=== PATIENT | male | born 1990 | race Asian ===

== ENCOUNTER 2024-04-13 08:58 | Inpatient (IN) | payer MEDICARE, MEDICAID ==
[2024-04-13] MEDS ORDERED: LORazepam 2 MG/ML INJ IM PRN (09:25)
[2024-04-13] MEDS ORDERED: IBUPROFEN 600 MG TAB PO PRN (09:25)
[2024-04-13] MEDS ORDERED: LORazepam 1 MG TAB PO PRN (09:25)
[2024-04-13] MEDS ORDERED: ACETAMINOPHEN TAB 325 MG TAB PO PRN (09:25)
[2024-04-13] MEDS ORDERED: MAGNESIUM HYDROXIDE 2,400 MG/30 ML CUP PO PRN (09:25)
[2024-04-13] MEDS ORDERED: haloperidoL 5 MG TAB PO PRN (09:25)
[2024-04-13] MEDS ORDERED: HALOPERIDOL LACTATE 5 MG/ML 1 ML VIAL IM PRN (09:25)
[2024-04-13] MEDS ORDERED: MAG HYDROX/AL HYDROX/SIMETH 355 ML BOTTLE PO PRN (09:25)
[2024-04-13] MEDS: PALIPERIDONE 3 MG TAB.ER.24 PO SCH (16:39)
[2024-04-14] MEDS ORDERED: traZODone HCL 50 MG TAB PO PRN (12:47)
--- NOTE | 2024-04-14 12:52 | P.HP ---
Psychiatric H&P - . H&P Date: 04/14/24 History & Physical: Allergies Allergy/AdvReac Type Severity Reaction Status Date / Time iodine Allergy Unknown Unknown Verified 04/13/24 16:35 Vital Signs Temp 97.6 F 04/14/24 09:17 Pulse 97 04/14/24 09:17 Resp 16 04/14/24 09:17 BP 108/72 04/14/24 09:17 Pulse Ox 97 04/14/24 09:17 FiO2 Intake & Output 04/13/24 04/14/24 04/14/24 18:59 06:59 18:59 Weight 90.265 kg Laboratory Last Values TSH 1.410 mIU/L (0.465-4.680) 04/14/24 09:24 04/14/24 12:06 IDENTIFYING DATA: Patient is a 33-year-old male, currently lives alone in a trailer, lives in [facility], he is single has no kids unemployed HPI: Patient presented to the hospital as a transfer from [facility]. As per EPS note "Per medical record from [facility]. Pt has been accepted for psychosis and manic behaviors per petition. Pt has been off psych meds for approx. 2 mos. parents went to pts apt and it was destroyed. Pt is paranoid and breaking things. Pt will be a direct admit to [facility] per central intake acceptance with Dr. Sy. Per intake and ER nurse, Abdiel, the pt has no medical issues, no behavioral issues, no restraints or PRN's needed, no physical restrictions and can return to his own apt upon discharge. Parents are involved in his care and he has a histroy of schizophrenia. Unsure of current psychiatric care. Covid negative 04/13. UDS negative. ETOH negative." Patient was seen today for psychiatric evaluation. As per petition completed by soil sort worker "patient presents to the ER with worsening paranoia and behavioral changes as reported by family. He was observed while in the ER to be responding to internal stimuli and has been recently been noncompliant with psychiatric treatment/medications." Patient was seen today sitting in his room agreeable to speak to designer writer today. He was fairly superficial vague and concrete. He had very poor understanding as to why he is in the hospital. He believes that his father "thought mentally I was not doing well". He states he has been taking the medications thus far however has not been taking anything at home. He believes that he is doing "fine" denied any issues at home and denied what was stated in the petition about breaking things. Denies any depression or anxiety at this time denies any problems with sleep or appetite. Appears to be disheveled in appearance. Patient denies any suicidal or homicidal ideations intent or plan. At this time patient denies any auditory or visual hallucinations. Patient denies any flight of ideas racing thoughts and increased in goal directed behavior. Patient admits to using no recreational drugs or cigarettes PAST PSYCHIATRIC HISTORY: Patient has a history of psychosis. Patient denies being on any psychiatric medications. Patient denies any previous psychiatric hospitalizations. Patient denies any psychiatric outpatient follow-up. Patient denies any history of suicide attempts in the past. PMH: as per ER note ALLERGIES: as per EMR CHEMICAL DEPENDENCY HISTORY: as per HPI FAMILY PSYCHIATRIC/SUBSTANCE USE HISTORY: Denies SOCIAL HISTORY: Patient was born and raised in [place] and raised in [place]. Claims that he completed high school, denies any legal history, claims he is single he has no kids he is unemployed. He lives alone in a trailer. MENTAL STATUS EXAM: General Appearance: Patient appears to be tall, long hair, wearing glasses, stated age is alert, fairly vague and guarded. Patient appears to have poor hygiene and grooming. Behavior: Patient is seated without any agitated behavior. Vague, guarded Speech: Patient's speech is fluent and nonpressured. And concrete Mood/Affect: Patient reports their mood is "okay", affect is congruent and constricted. Suicidality/Homicidality: Patient denies having any homicidal ideation intent or plan. Denies any suicidal ideations intent or plan Perceptions: Patient denies any visual hallucinations and denies any auditory hallucinations Though content/process: Minimizing, not endorsing any delusions or paranoia. Poor insight into his condition and need for hospitalization Memory and concentration: AOX3, grossly intact for the purposes of this session. Can spell "WORLD" backwards Judgment and insight: Poor STRENGTHS/WEAKNESSES: strength is that patient is resilient. Weakness is that patient has poor judgment and is impulsive INTELLECT: Average IMPRESSIONS: Psychosis unspecified, rule out schizophrenia versus drug-induced psychotic disorder PLAN: -Patient is admitted under involuntary status to [facility] for stabilization of psychiatric symptoms and safety. Patient has not signed adult voluntary form and has not signed medication consent and is placed in patient's chart. A second certification was completed and along with petition will be filed for court. -Medications : Invega p.o. 3 mg twice daily for psychosis/mood stabilization. Trazodone 50 mg nightly as needed for insomnia. -Ativan and Haldol PRN for agitation/aggression -Patient was informed of the risks, benefits and side effects of the medications . Patient did not signed med consent form and was placed in chart. Patient was offered medication information and declined it -Internal Medicine consult to perform medical evaluation and physical. -NRT -not needed as patient does not smoke -SW on board for discharge planning. Encourage patient to participate in groups to work on coping skills. Will await deferral and court date. 04/14/24 12:48
[2024-04-14 16:07] LABS: Chol/HDL Ratio 4.48 Ratio; LDL Cholesterol,Calculated 99.6 mg/dL (0.0-131.0); VLDL Calculation 16.86 mg/dL (5.00-40.00)
--- NOTE | 2024-04-15 04:24 | P.MDCNMH ---
History of Present Illness H&P Date: 04/14/24 Patient is a 33-year-old male with history of psychosis who presented for evaluation of mental health needs. Medicine was consulted for medical evaluation. Patient states he has no medical history or problems. He takes no medications at home other than olanzapine which he has been on for some time. He denies fever, chest pain, shortness of breath, abdominal pain, weakness, dizziness, dysuria. Patient is afebrile, blood pressure 108/72, pulse 97, O2 saturation 97% on room air. HDL 33 is decreased, HbA1c and TSH are WNL. No imaging to review. Social history: Patient denies history of alcohol, tobacco, drug use Review of systems: Reviewed, pertinent positive negatives as per HPI Gen: In NAD, non-toxic HEENT: normocephalic, atraumatic, hearing acuity is intact, mucous membranes moist CVS: perfusing all extremities well, no pitting edema Respiratory: symmetric chest expansion, no accessory muscle use GI: soft, NTTP, ND, : no suprapubic tenderness, no CVA tenderness MSK/Derm: no rashes, cyanosis Neuro: CN II-XII intact, no motor weakness Assessment/plan: #Dyslipidemia -HDL decreased - no statin needed at this time - no further labs or imaging needed at this time #Psychosis -Management per primary psychiatry service Thank you for this consult, please reach out if any further questions/concerns. Past Medical History Past Medical History: No Reported History Additional Past Medical History / Comment(s): Poor historian History of Any Multi-Drug Resistant Organisms: None Reported Additional Past Surgical History / Comment(s): Poor historian Past Anesthesia/Blood Transfusion Reactions: No Reported Reaction Smoking Status: Never smoker Past Alcohol Use History: None Reported Past Drug Use History: None Reported Additional Drug Use History / Comment(s): Per EMR history of cocaine and LSD 5 months ago Medications and Allergies Home Medications Medication Instructions Recorded Confirmed Type OLANZapine [Zyprexa] 20 mg PO HS 04/13/24 04/13/24 History Allergies Allergy/AdvReac Type Severity Reaction Status Date / Time iodine Allergy Unknown Unknown Verified 04/13/24 16:35 Physical Exam Vitals: Vital Signs Temp Pulse Pulse Resp BP BP BP 04/14/24 09:17 97.6 F 97 16 108/72 04/13/24 20:45 97.7 F 102 H 12 103/82 103/82 Pulse Ox 04/14/24 09:17 97 04/13/24 20:45 99 Cranial Nerve Examination - Cranial Nerves Cranial Nerve II- Optic: Intact Cranial Nerve III- Oculomotor: Intact Cranial Nerve IV- Trochlear: Intact Cranial Nerve V- Trigeminal: Intact Cranial Nerve - Abducens: Intact Cranial Nerve VII- Facial: Intact Cranial Nerve VIII- Auditory: Intact Cranial Nerve IX- Glossopharyngeal: Intact Cranial Nerve X- Vagus: Intact Cranial Nerve XI- Accessory: Intact Cranial Nerve XII- Hypoglossal: Intact Results Labs: Abnormal Lab Results - Last 24 Hours (Table) 04/14/24 Range/Units 09:24 HDL Cholesterol 33.50 L (40.00-60.00) mg/dL
--- NOTE | 2024-04-15 10:00 | P.PN ---
Progress Note - Text Progress Note Date: 04/15/24 Interval History: Patient was seen today in his room for psychiatric follow-up. Patient was sit ting on his bed, keeping to himself mainly in his room. He continues to have fairly poor insight poor judgment. Appears to be mildly more cooperative today with card writer hand, continues to be fairly concrete, limited understanding as to why he is in the hospital. Has been taking his medications not reporting any problems or side effects. States that he did talk to his father however was fairly evasive about what they talked about. Has not been going to groups. Claims that he took a shower earlier today. Denies any depression or anxiety. Denies any auditory or visual hallucinations. Denies any suicidal homicidal ideations intent or plan. Mental status exam: General Appearance: Patient appears to be tall, long hair, wearing glasses, stated age is alert, fairly vague and guarded. Patient appears to have improving hygiene and grooming. Behavior: Patient is seated without any agitated behavior. guarded Speech: Patient's speech is fluent and nonpressured. And concrete Mood/Affect: Patient reports their mood is "ok", affect is congruent and constricted. Improving mildly Suicidality/Homicidality: Patient denies having any homicidal ideation intent or plan. Denies any suicidal ideations intent or plan Perceptions: Patient denies any visual hallucinations and denies any auditory hallucinations Though content/process: Minimizing, not endorsing any delusions or paranoia. Poor insight into his condition. Poverty of content Memory and concentration: AOX3, grossly intact for the purposes of this session Judgment and insight: Poor IMPRESSIONS: Psychosis unspecified, rule out schizophrenia versus drug-induced psychotic disorder PLAN: -Patient is admitted under involuntary status to [facility] for stabilization of psychiatric symptoms and safety. Patient has not signed adult voluntary form and has not signed medication consent and is placed in patient's chart. -Medications : Invega p.o. 3 mg twice daily for psychosis/mood stabilization. Plan will be to transition patient onto long-acting injection to help ensure compliance. Trazodone 50 mg nightly as needed for insomnia. -Ativan and Haldol PRN for agitation/aggression -NRT -not needed as patient does not smoke -SW on board for discharge planning. Encourage patient to participate in groups to work on coping skills. Will await deferral and court date.
[2024-04-16 06:59] VITALS: TEMP 98.2
--- NOTE | 2024-04-16 10:25 | P.PN ---
Progress Note - Text Progress Note Date: 04/16/24 Interval History: Patient was seen today in his room for psychiatric follow-up. Patient claims that he just finished showering. He appears to be fairly directable during conversation, more appropriate. Has been taking his medications not reporting any side effects or problems. We spoke about transitioning to long-acting injection to help with compliance however patient adamantly declined at this time. Claims that he preferred to take the pills. Insight and judgment mildly improving. Denies any depression or anxiety. Patient was sitting on his bed, keeping to himself mainly in his room. Has been taking his medications not reporting any problems or side effects. Has not been going to groups. Denies any auditory or visual hallucinations. Denies any suicidal homicidal ideations intent or plan. Mental status exam: General Appearance: Patient appears to be tall, long hair, wearing glasses, stated age is alert, fairly vague and guarded. Patient appears to have improving hygiene and grooming. Behavior: Patient is seated without any agitated behavior. guarded, improving mildly Speech: Patient's speech is fluent and nonpressured. And concrete, improving mildly Mood/Affect: Patient reports their mood is "ok", affect is congruent and constricted. Improving mildly Suicidality/Homicidality: Patient denies having any homicidal ideation intent or plan. Denies any suicidal ideations intent or plan Perceptions: Patient denies any visual hallucinations and denies any auditory hallucinations Though content/process: Minimizing, not endorsing any delusions or paranoia. Poor insight into his condition. Poverty of content, improving mildly Memory and concentration: AOX3, grossly intact for the purposes of this session Judgment and insight: Poor, improving mildly IMPRESSIONS: Psychosis unspecified, rule out schizophrenia versus drug-induced psychotic disorder PLAN: -Patient is admitted under involuntary status to [facility] for stabilization of psychiatric symptoms and safety. Patient has not signed adult voluntary form and has not signed medication consent and is placed in patient's chart. -Medications : Invega p.o. 3 mg twice daily for psychosis/mood stabilization. Director Volunteer Services spoke with patient about the benefits and risks associated with transitioning to long-acting injection however patient adamantly declined at this time. Trazodone 50 mg nightly as needed for insomnia. -Ativan and Haldol PRN for agitation/aggression -NRT -not needed as patient does not smoke -SW on board for discharge planning. Encourage patient to participate in groups to work on coping skills. Will await deferral and court date. Hopeful for discharge in 1 to 2 days will be going back home.
[2024-04-17 08:36] VITALS: BP 107/72; PULSE 109; RESP 18
--- NOTE | 2024-04-17 11:19 | P.PN ---
Progress Note - Text Progress Note Date: 04/17/24 Interval History: Patient was seen today in his room for psychiatric follow-up. Patient appears to have improvement in his hygiene and grooming today. He was fairly directable during conversation, answered most questions appropriately. Denies any depression or anxiety today. Not reporting any psychotic symptoms denying any auditory or visual hallucinations. Claims that he will likely be talking to his father today, was asking questions about discharge date. Still has not met with his steel wheel engraver will be meeting with them tomorrow virtually. Continues to decline long-acting injection. Claims that he preferred to take the pills. Insight and judgment mildly improving. He has been going to some groups however not staying for very long mainly keeping himself on the unit. Denies any auditory or visual hallucinations. Denies any suicidal homicidal ideations intent or plan. Mental status exam: General Appearance: Patient appears to be tall, long hair, wearing glasses, stated age is alert, fairly vague and guarded. Patient appears to have improving hygiene and grooming. Behavior: Patient is seated without any agitated behavior. guarded, improving mildly Speech: Patient's speech is fluent and nonpressured. concrete, improving mildly Mood/Affect: Patient reports their mood is "fine", affect is congruent and constricted. Improving mildly Suicidality/Homicidality: Patient denies having any homicidal ideation intent or plan. Denies any suicidal ideations intent or plan Perceptions: Patient denies any visual hallucinations and denies any auditory hallucinations Though content/process: Minimizing, not endorsing any delusions or paranoia. Poor insight into his condition. Poverty of content, improving mildly Memory and concentration: AOX3, grossly intact for the purposes of this session Judgment and insight: improving mildly IMPRESSIONS: Psychosis unspecified, rule out schizophrenia versus drug-induced psychotic disorder PLAN: -Patient is admitted under involuntary status to [facility] for stabilization of psychiatric symptoms and safety. Patient has not signed adult voluntary form and has not signed medication consent and is placed in patient's chart. -Medications : Invega p.o. 3 mg twice daily for psychosis/mood stabilization. Computer Art Instructor spoke with patient about the benefits and risks associated with transitioning to long-acting injection however patient adamantly declined at this time. Trazodone 50 mg nightly as needed for insomnia. -Ativan and Haldol PRN for agitation/aggression -NRT -not needed as patient does not smoke -SW on board for discharge planning. Encourage patient to participate in groups to work on coping skills. Will await deferral scheduled for tomorrow, patient states that he is willing to sign deferral. Hopeful for discharge in tomorrow, will be going back home.
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
== END 2024-04-18 14:05 | disposition home or self-care (01) | DRG 885 ==
LOC: 3MHU 12:05
PROVIDERS: ADMIT Psychiatry & Neurology Psychiatry; ATTEND Psychiatry & Neurology Psychiatry
DX: F29 Unspecified psychosis not due to a substance or known physiological condition (principal); E78.5 Hyperlipidemia, unspecified; F19.11 Other psychoactive substance abuse, in remission; F20.9 Schizophrenia, unspecified; F41.9 Anxiety disorder, unspecified; Z91.199 Patient's noncompliance with other medical treatment and regimen due to unspecified reason; Z60.2 Problems related to living alone; Z56.0 Unemployment, unspecified; Z71.51 Drug abuse counseling and surveillance of drug abuser; Z28.21 Immunization not carried out because of patient refusal; Z28.310 Unvaccinated for COVID-19; Z79.899 Other long term (current) drug therapy; Z88.8 Allergy status to other drugs, medicaments and biological substances; Z71.89 Other specified counseling
CPT/HCPCS: 80061; 83036; 84443

== ENCOUNTER 2024-05-29 21:03 | Inpatient (IN) | payer MEDICARE, MEDICAID ==
[2024-05-29] MEDS ORDERED: haloperidoL 5 MG TAB PO PRN (22:03)
[2024-05-29] MEDS ORDERED: MAG HYDROX/AL HYDROX/SIMETH 355 ML BOTTLE PO PRN (22:03)
[2024-05-29] MEDS ORDERED: MAGNESIUM HYDROXIDE 2,400 MG/30 ML CUP PO PRN (22:03)
[2024-05-29] MEDS ORDERED: IBUPROFEN 600 MG TAB PO PRN (22:03)
[2024-05-29] MEDS ORDERED: HALOPERIDOL LACTATE 5 MG/ML 1 ML VIAL IM PRN (22:03)
[2024-05-29] MEDS ORDERED: LORazepam 2 MG/ML INJ IM PRN (22:03)
[2024-05-29] MEDS ORDERED: ACETAMINOPHEN TAB 325 MG TAB PO PRN (22:03)
[2024-05-30] MEDS: NICOTINE 14MG/24HR PATCH TRANSDERM SCH (08:59)
[2024-05-30 09:37] LABS: ALT 17 U/L (4-49); AST 20 U/L (17-59); Albumin 4.6 g/dL (3.5-5.0); Alkaline Phosphatase 72 U/L (38-126); Bilirubin, Delta 0.2 mg/dL (0.0-0.2); Bilirubin,Unconjugated 0.4 mg/dL (0.0-1.1); Total Bilirubin 0.6 mg/dL (0.2-1.3); Total Protein 7.3 g/dL (6.3-8.2)
--- NOTE | 2024-05-30 12:05 | P.HP ---
Psychiatric H&P - . H&P Date: 05/30/24 History & Physical: Allergies Allergy/AdvReac Type Severity Reaction Status Date / Time iodine Allergy Unknown Unknown Verified 04/13/24 16:35 Vital Signs Temp 98.0 F 05/29/24 22:15 Pulse 85 05/29/24 22:15 Resp 16 05/29/24 22:15 BP 115/74 05/30/24 09:00 Pulse Ox 100 05/29/24 22:15 FiO2 Intake & Output 05/29/24 05/30/24 05/30/24 18:59 06:59 18:59 Weight 90.537 kg Laboratory Last Values Total Bilirubin 0.6 mg/dL (0.2-1.3) 05/30/24 07:33 Conjugated Bilirubin 0.0 mg/dL (0.0-0.3) 05/30/24 07:33 Unconjugated Bilirubin 0.4 mg/dL (0.0-1.1) 05/30/24 07:33 Delta Bilirubin 0.2 mg/dL (0.0-0.2) 05/30/24 07:33 AST 20 U/L (17-59) 05/30/24 07:33 ALT 17 U/L (4-49) 05/30/24 07:33 Alkaline Phosphatase 72 U/L (38-126) 05/30/24 07:33 Total Protein 7.3 g/dL (6.3-8.2) 05/30/24 07:33 Albumin 4.6 g/dL (3.5-5.0) 05/30/24 07:33 TSH 2.110 mIU/L (0.465-4.680) 05/30/24 07:33 05/30/24 11:56 IDENTIFYING DATA: Patient is a 33-year-old male, currently lives alone in a trailer, lives in [facility], he is single has no kids unemployed HPI: Patient presented to the hospital as a transfer from [facility]. As per EPS note "Patient presented to [facility] related to altered mental status and noncompliance with medications. Patient petitioned by parents stating that he is stealing from his social security and believes he is cured of schizophrenia. Patient has been noncompliant with his medications x3 days. Verbalizes auditory hallucinations daily but denies any commands." Patient was seen today for psychiatric evaluation. Patient was wandering the hallways. Patient claims that his parents were "a little scared" of him as he stopped taking his medications. He claims that they believe that he needs to come back to the hospital. He signed the deferral from his previous admission to the mental health unit in March. He is denying any current psychiatric issues at this time or no stressors at home. Claims that he thought that he was "fine". Claims that he was taking his Invega but then decided to stop for "a couple of days". He has fairly poor insight poor judgment. He was not responding to internal stimuli at this time. Patient denies any suicidal or homicidal ideations intent or plan. At this time patient denies any auditory or visual wen llucinations. Patient denies any flight of ideas racing thoughts and increased in goal directed behavior. Patient admits to using no recreational drugs or cigarettes he claims that his sleep and appetite are fair at this time. PAST PSYCHIATRIC HISTORY: Patient has a history of psychosis, schizophrenia. Patient was previously on Invega 3 mg p.o. twice daily for psychosis. Patient was last psychiatrically hospitalized on mental health unit in March 2024. Patient is currently on an active deferral. Patient claims that he follows up at [facility] counseling with the nurse practitioner. Patient denies any history of suicide attempts in the past. PMH: as per ER note ALLERGIES: as per EMR CHEMICAL DEPENDENCY HISTORY: as per HPI FAMILY PSYCHIATRIC/SUBSTANCE USE HISTORY: Denies SOCIAL HISTORY: Patient was born and raised in [place] and raised in [place]. Claims that he completed high school, denies any legal history, claims he is single he has no kids he is unemployed. He lives alone in a trailer. MENTAL STATUS EXAM: General Appearance: Patient appears to be tall, long hair, wearing glasses, stated age is alert, fairly vague and guarded. Patient appears to have poor hygiene and grooming. Behavior: Patient is seated without any agitated behavior. Vague, guarded Speech: Patient's speech is fluent and nonpressured, concrete Mood/Affect: Patient reports their mood is "fine", affect is congruent and constricted. Suicidality/Homicidality: Patient denies having any homicidal ideation intent or plan. Denies any suicidal ideations intent or plan Perceptions: Patient denies any visual hallucinations and denies any auditory hallucinations Though content/process: Minimizing, not endorsing any delusions or paranoia. Poor insight into his condition and need for hospitalization Memory and concentration: AOX3, grossly intact for the purposes of this session. Can spell "WORLD" backwards Judgment and insight: Poor STRENGTHS/WEAKNESSES: strength is that patient is resilient. Weakness is that patient has poor judgment and is impulsive and non compliant with meds. INTELLECT: Average IMPRESSIONS: schizophrenia PLAN: -Patient is admitted under involuntary status on an active deferral to [facility] for stabilization of psychiatric symptoms and safety. Patient has signed medication consent and is placed in patient's chart. -Medications : Invega p.o. 3 mg twice daily for psychosis/mood stabilization. patient will need JASMINE to help ensure compliance. -Ativan and Haldol PRN for agitation/aggression -Patient was informed of the risks, benefits and side effects of the medications . Patient did signed med consent form and was placed in chart. Patient was offered medication information and declined it -Internal Medicine consult to perform medical evaluation and physical. -NRT -not needed as patient does not smoke -SW on board for discharge planning. Encourage patient to participate in groups to work on coping skills. Will await court date. patient will need to be transitioned onto JASMINE. 05/30/24 12:00
[2024-05-30] MEDS: PALIPERIDONE 3 MG TAB.ER.24 PO SCH (13:15)
[2024-05-30 15:32] LABS: Chol/HDL Ratio 3.34 Ratio; LDL Cholesterol,Calculated 70.3 mg/dL (0.0-131.0); VLDL Calculation 17.26 mg/dL (5.00-40.00)
--- NOTE | 2024-05-30 21:49 | P.CONS ---
History of Present Illness - Reason for Consult Consult date: 05/30/24 medical comanagement - Chief Complaint medication nonadherance - History of Present Illness Jose is a 33-year-old male with past medical history schizophrenia. Expresses he was recently admitted to inpatient behavioral health and was discharged home with paliperidone. It appears the patient was prescribed paliperidone 3 mg twice daily per the patient however reports that for the past 2 days he has not been taking his medications for unclear reasons. It appears that after missing his medications for 2 days his father had brought him to the ER for further evaluation. The patient denies any other pertinent medical history. He denies any recreational drug use reports he does not use tobacco and he does not drink alcohol. He is not prescribed any other medications. Most recent vital signs are from 09 100 this morning his blood pressure was noted be 115/74. Current lab work includes a hepatic function profile lipid profile and A1c. A1c is noted be 5.1 AST is 20 ALT of 17 total bilirubin at 0.6 albumin of 4.6 lipid profile reveals a LDL of 70 HDL of 37 and TSH of 2.1 Review of Systems Pertinent positives and negatives as discussed in HPI, a complete review of systems was performed and all other systems are negative. Past Medical History Past Medical History: No Reported History Additional Past Medical History / Comment(s): Poor historian History of Any Multi-Drug Resistant Organisms: None Reported Past Surgical History: No Surgical Hx Reported Additional Past Surgical History / Comment(s): Poor historian Past Anesthesia/Blood Transfusion Reactions: No Reported Reaction Smoking Status: Current every day smoker, Vaper - Past Family History Father Family Medical History: No Reported History Medications and Allergies Home Medications Medication Instructions Recorded Confirmed Type Paliperidone [Invega] 3 mg PO BID 30 Days #60 tab 04/18/24 Rx Allergies Allergy/AdvReac Type Severity Reaction Status Date / Time iodine Allergy Unknown Unknown Verified 04/13/24 16:35 Fish Containing Products AdvReac Unknown Verified 05/30/24 18:32 Physical Exam Vitals: Vital Signs Temp Pulse Resp BP Pulse Ox 05/30/24 09:00 115/74 05/29/24 22:15 98.0 F 85 16 124/87 100 General: non toxic, no distress, male papears stated age Derm: warm, dry Head: atraumatic, normocephalic, symmetric Eyes: EOMI, no lid lag, anicteric sclera, ENT: Nose and ears atraumatic, no thrush, no pharyngeal erythema Neck: trachea midline, supple Mouth: no lip lesion, mucus membranes moist Cardiovascular: S1S2 reg, no murmur Lungs: clear to ascultation bilateral Abdominal: soft, nontender to palpation, no guarding Ext: no gross muscle atrophy Neuro: Moving all extremity spontaneously Psych: Calm and cooperative Results Labs: Abnormal Lab Results - Last 24 Hours (Table) 05/30/24 Range/Units 07:33 HDL Cholesterol 37.40 L (40.00-60.00) mg/dL Assessment and Plan Assessment: #) Schiophrenia and supposed to be on paliperidone 3 mg twice daily however had autonomously discontinued. Management as per psychiatry team and paliperidone 3 mg twice daily has been restarted. #) No other pertinent past medical history. His A1c hepatic function profile and TSH were reviewed #) Allergy to iodine and fish products UDS, CBC, and CMP pending at the time of this writing Thank you for allowing us to take care of this patient. Please do not hesitate to contact sound physician for any concerns.
[2024-05-31 01:20] LABS: Basophils # (A) 0.05 10*3/uL (0.00-0.10); Basophils % (A) 0.7 %; Eosinophils # (A) 0.29 10*3/uL (0.04-0.35); HCT 39.3 % (39.6-50.0); HGB 13.7 g/dL (13.0-17.0); Lymphocytes # (A) 1.96 10*3/uL (0.90-5.00); Lymphocytes % (A) 26.8 %; MCH 28.6 pg (27.0-32.0); MCHC 34.9 g/dL (32.0-37.0); Mean Platelet Volume 9.3 fL (9.5-12.2); Monocytes # (A) 0.57 10*3/uL (0.20-1.00); Monocytes % (A) 7.8 %; Neutrophils # (A) 4.44 10*3/uL (1.80-7.70); Neutrophils % (A) 60.6 %; Platelet Count 314 10*3/uL (140-440); RBC 4.79 10*6/uL (4.40-5.60); RDW 11.9 % (11.5-14.5); WBC 7.32 10*3/uL (4.50-10.00)
[2024-05-31 01:21] LABS: ALT 14 U/L (4-49); AST 21 U/L (17-59); African American GFR (CKD) >90 (>60 ml/min/1.73 sqM); Albumin 3.9 g/dL (3.5-5.0); Alkaline Phosphatase 57 U/L (38-126); Anion Gap 4 mmol/L; Blood Urea Nitrogen 13 mg/dL (9-20); Calcium 9.3 mg/dL (8.4-10.2); Carbon Dioxide 30 mmol/L (22-30); Chloride 101 mmol/L (98-107); Glucose 81 mg/dL (74-99); Non-African American GFR(CKD) >90 (>60 ml/min/1.73 sqM); Potassium 4.2 mmol/L (3.5-5.1); Sodium 135 mmol/L (137-145); Total Bilirubin 0.3 mg/dL (0.2-1.3); Total Protein 6.4 g/dL (6.3-8.2)
--- NOTE | 2024-05-31 11:16 | P.PN ---
Progress Note - Text Progress Note Date: 05/31/24 Dictation was produced using [employer] dictation software. Please excuse any grammatical, word or spelling errors. Interval history: Patient was seen in the hallway and was directable and agreeable to speak with the publications writer in the office for psychiatric follow-up. The patient states that he is feeling very good, states that his mood is "decent." Reported that depression and anxiety to be at the low side, reported that he slept well last night, and has been eating well. States that he feel safe in the unit. Denied any current SI/HI or self harm, denied any current AVH, reported that he used to have AVH about a month ago. States that he came in yesterday. He was able to elaborate on coming to the hospital and reported that he forgot to take his medication. States that he restarted that medication yesterday and reported that he feels fine, denied any side effects, denied any muscle stiffness, rigidity, abnormal movement, or drooling. Patient was educated on long-acting injectable, he states that he does not want to deal with any needles, publications writer asked the patient to keep it in mind and to think about it. He reported that he is getting along well with everyone in the unit, patient was encouraged to participate in groups. Mental status exam: General Appearance: Patient appears to be tall, long hair, wearing glasses, stated age is alert, vague and guarded. Patient appears to have poor hygiene and grooming. Behavior: Patient is seated without any agitated behavior, guarded and paranoid at time Speech: Patient's speech is fluent and nonpressured, concrete Mood/Affect: Patient reports their mood is "decent", affect is congruent and constricted, and paranoid at times. Suicidality/Homicidality: Patient denies having any homicidal ideation intent or plan. Denies any suicidal ideations intent or plan Perceptions: Patient denies any visual hallucinations and denies any auditory hallucinations Though content/process: Minimizing, not endorsing any delusions or paranoia however he lacked paranoid. Poor insight into his condition and need for hospitalization Memory and concentration: AOX3, grossly intact for the purposes of this session. Can spell "WORLD" backwards Judgment and insight: Poor IMPRESSIONS: schizophrenia Assessment/Plan: Continue with current diagnosis. Patient continues to meet criteria for inpatient psychiatric admission for symptom stabilization and safety. Patient will be maintained on current psychotropic medication regimen which include Invega 3 mg p.o. twice daily, he has been compliant with his medication, denied any current side effects, denied any muscle stiffness, rigidity, abnormal movement, or drooling, patient would benefit from transition to long-acting injectable given the reported history of noncompliance, education was provided and he did not agree with the plan since he reported he does not like needles, was asked to think about it and make a decision later on. Monitor for medication compliance and for any psychotropic medication side effects. Will continue to monitor ongoing response to treatment. Encouraged participation in milieu.
--- NOTE | 2024-06-01 11:15 | P.PN ---
Progress Note - Text Progress Note Date: 06/01/24 Dictation was produced using [employer] dictation software. Please excuse any grammatical, word or spelling errors. Interval history: Patient was seen in the group room, and was directable and agreeable to speak with the marketing writer in the office for psychiatric follow-up. The patient states that he is feeling "not too bad" today, states that he slept well last night, admitted to eating well, states that depression, and anxiety to be at the low side, he rated both at 2/10. Denied any current SI/HI or self harm. Denied any current AVH, paranoia, reported that he feel safe in the unit, getting along well with everyone in the unit. States that he has been taking his medications, denied any side effects. Denied any muscle stiffness, rigidity, abnormal movements, or drooling. Education was provided into long-acting injectable, patient continued to not consider injection at this time given his fear of needles, we encourage patient to keep thinking about it and to share with his family. Patient reported that he was able to speak with his father and reported things are going well. Patient was participating with afternoon group, patient was encouraged to continue doing so. Mental status exam: General Appearance: Patient appears to be tall, long hair, wearing glasses, stated age, is alert, less guarded. Patient appears to have fair hygiene and grooming. Behavior: Patient is seated without any agitated behavior, less guarded Speech: Patient's speech is fluent and nonpressured, concrete Mood/Affect: Patient reports their mood is "not too bad", affect is congruent and constricted, and less guarded. Suicidality/Homicidality: Patient denies having any homicidal ideation intent or plan. Denies any suicidal ideations intent or plan Perceptions: Patient denies any visual hallucinations and denies any auditory hallucinations Though content/process: Superficially linear, mildly improving, minimizing at times however less guarded. Poor insight into his condition and need for hospitalization Memory and concentration: AOX3, grossly intact for the purposes of this session. Can spell "WORLD" backwards Judgment and insight: Mild improvement IMPRESSIONS: schizophrenia Assessment/Plan: Continue with current diagnosis. Patient continues to meet criteria for inpatient psychiatric admission for symptom stabilization and safety. Patient will be maintained on current psychotropic medication regimen which include Invega 3 mg p.o. twice daily, he has been compliant with his medication, denied any current side effects, denied any muscle stiffness, rigidity, abnormal movement, or drooling, patient would benefit from transition to long-acting injectable given the reported history of noncompliance, education was provided and he continued to not agree with the plan due to fear of needles, was asked to think about it and make a decision later on. Monitor for medication compliance and for any psychotropic medication side effects. Will continue to monitor ongoing response to treatment. Encouraged participation in milieu.
--- NOTE | 2024-06-02 10:57 | P.PN ---
Progress Note - Text Progress Note Date: 06/02/24 Interval History: Patient was seen today for psychiatric follow up. patient was seen walking the hallways, then agreeable to be seen in his room today. Patient appears to have improvement in hygiene and grooming, claims that he has been taking the medications tolerating them well. He is fairly concrete. Claims that he spoke with his father over the phone over the weekend he did not visit. We spoke about the court process and waiting for the demand for hearing date to be set with [facility]. He asked minimal questions, not responding to internal stimuli, more goal oriented. Claims that he slept fairly last night, denies any depression or anxiety. Denies any auditory or visual hallucinations, denies any suicidal or homicidal ideations intent or plan. MENTAL STATUS EXAM: General Appearance: Patient appears to be tall, long hair, wearing glasses, stated age is alert, fairly vague. Patient appears to have improving hygiene and grooming. Behavior: Patient is seated without any agitated behavior. Vague, improving mildly Speech: Patient's speech is fluent and nonpressured, concrete Mood/Affect: Patient reports their mood is "ok", affect is congruent and constricted. Improving mildly Suicidality/Homicidality: Patient denies having any homicidal ideation intent or plan. Denies any suicidal ideations intent or plan Perceptions: Patient denies any visual hallucinations and denies any auditory hallucinations Though content/process: Patient was fairly concrete, poverty of content. Not endorsing any delusions or paranoia. Memory and concentration: AOX3, grossly intact for the purposes of this session Judgment and insight: Poor, improving mildly IMPRESSIONS: schizophrenia PLAN: -Patient is admitted under involuntary status on an active deferral to [facility] for stabilization of psychiatric symptoms and safety. Patient has signed medication consent and is placed in patient's chart. -Medications : Invega p.o. 3 mg twice daily for psychosis/mood stabilization. patient will need JASMINE to help ensure compliance. -Ativan and Haldol PRN for agitation/aggression -NRT -not needed as patient does not smoke -SW on board for discharge planning. Encourage patient to participate in groups to work on coping skills. Will await court date from demand for hearing. patient will need to be transitioned onto JASMINE.
--- NOTE | 2024-06-03 11:11 | P.PN ---
Progress Note - Text Progress Note Date: 06/03/24 Interval History: Patient was seen today for psychiatric follow up. patient was seen walking the hallways and was agreeable to speak to documentation writer. Patient continues to be fairly concrete, claims that he is doing fairly well. He is mainly keeping himself, only going to some groups. States that his mood and anxiety have been improving mildly since yesterday. Has been taking his medications not reporting any side effects. He claims that he slept fairly overnight. We spoke again about the demand for hearing and waiting on the civil attorney, we also spoke about the option to transition onto long-acting injection to help ensure compliance and patient was okay with this today. Denies any auditory or visual hallucinations, denies any suicidal or homicidal ideations intent or plan. MENTAL STATUS EXAM: General Appearance: Patient appears to be tall, long hair, wearing glasses, stated age is alert, fairly vague. Patient appears to have improving hygiene and grooming. Behavior: Patient is seated without any agitated behavior, improving mildly Speech: Patient's speech is fluent and nonpressured, concrete Mood/Affect: Patient reports their mood is "fine", affect is congruent and constricted. Improving mildly Suicidality/Homicidality: Patient denies having any homicidal ideation intent or plan. Denies any suicidal ideations intent or plan Perceptions: Patient denies any visual hallucinations and denies any auditory hallucinations Though content/process: Patient was fairly concrete, poverty of content. Not endorsing any delusions or paranoia. Memory and concentration: AOX3, grossly intact for the purposes of this session Judgment and insight: improving mildly IMPRESSIONS: schizophrenia PLAN: -Patient is admitted under involuntary status on an active deferral to [facility] for stabilization of psychiatric symptoms and safety. Patient has signed medication consent and is placed in patient's chart. -Medications : Plan will be to titrate off Invega p.o.. patient will receive Invega Sustenna 234 mg IM today, second dose of 156 mg IM will be due on Sunday. -Ativan and Haldol PRN for agitation/aggression -NRT -not needed as patient does not smoke -SW on board for discharge planning. Encourage patient to participate in groups to work on coping skills. Will await court date from demand for hearing. patient will need to be transitioned onto JASMINE. hopeful for discharge by the end of the week.
[2024-06-03] MEDS: PALIPERIDONE IM 234 MG/1.5 ML SYG IM STA (11:17)
[2024-06-03] MEDS: PALIPERIDONE 3 MG TAB.ER.24 PO ONE (20:34)
--- NOTE | 2024-06-04 11:06 | P.PN ---
Progress Note - Text Progress Note Date: 06/04/24 Interval History: Patient was seen today for psychiatric follow up. patient was seen walking the hallways and was agreeable to speak to marine underwriter. Patient states that he is doing fair today. Denies any issues yesterday with the first dose of Invega Sustenna. Claims that he tolerated well on the shoulder. We spoke about transitioning off the p.o. medications and just onto the injection which she is okay with. Continue to await the demand for hearing from [facility]. Claims that he has been mainly keeping himself not going to many groups. Denies any depression or anxiety. States that he slept fairly last night, has been eating well. Denies any auditory or visual hallucinations, denies any suicidal or homicidal ideations intent or plan. MENTAL STATUS EXAM: General Appearance: Patient appears to be tall, long hair, wearing glasses, stated age is alert, fairly vague. Patient appears to have improving hygiene and grooming. Behavior: Patient is seated without any agitated behavior, improving mildly Speech: Patient's speech is fluent and nonpressured, concrete, improving mildly Mood/Affect: Patient reports their mood is "ok", affect is congruent and constricted. Improving mildly Suicidality/Homicidality: Patient denies having any homicidal ideation intent or plan. Denies any suicidal ideations intent or plan Perceptions: Patient denies any visual hallucinations and denies any auditory hallucinations Though content/process: Patient was fairly concrete, poverty of content. Not endorsing any delusions or paranoia. Memory and concentration: AOX3, grossly intact for the purposes of this session Judgment and insight: improving mildly IMPRESSIONS: schizophrenia PLAN: -Patient is admitted under involuntary status on an active deferral to [facility] for stabilization of psychiatric symptoms and safety. Patient has signed medication consent and is placed in patient's chart. -Medications : Received Invega Sustenna 234 mg IM loading dose on 06/03, second dose of 156 mg IM will be due on 06/06 and monthly maintenance dose of 117 mg IM will be due on 07/04 -Ativan and Haldol PRN for agitation/aggression -NRT -not needed as patient does not smoke -SW on board for discharge planning. Encourage patient to participate in groups to work on coping skills. Will await court date from demand for hearing. patient will need to be transitioned onto JASMINE. hopeful for discharge by the end of the week.
[2024-06-04] MEDS: LORazepam 1 MG TAB PO PRN (20:37)
--- NOTE | 2024-06-05 11:05 | P.PN ---
Progress Note - Text Progress Note Date: 06/05/24 Interval History: Patient was seen today for psychiatric follow up. Patient was laying in his b ed, agreeable to speak to comic writer. Claims that he is doing okay today, not reporting any problems with his medications. Continues to be focused on discharge planning. We spoke about continuing to wait for the hearing date, patient claims that he is agreeable to sign consent form. he will Continue to await the demand for hearing from [facility], this is set for next sunday. Claims that he has been mainly keeping to himself not going to many groups. Denies any depression or anxiety. States that he slept fairly last night, has been eating well. Denies any auditory or visual hallucinations, denies any suicidal or homicidal ideations intent or plan. MENTAL STATUS EXAM: General Appearance: Patient appears to be tall, long hair, wearing glasses, stated age is alert, fairly vague. Patient appears to have improving hygiene and grooming. Behavior: Patient is seated without any agitated behavior, improving mildly Speech: Patient's speech is fluent and nonpressured, concrete, improving mildly Mood/Affect: Patient reports their mood is "fine", affect is congruent and constricted. Improving mildly Suicidality/Homicidality: Patient denies having any homicidal ideation intent or plan. Denies any suicidal ideations intent or plan Perceptions: Patient denies any visual hallucinations and denies any auditory hallucinations Though content/process: Patient was fairly concrete, poverty of content. Not endorsing any delusions or paranoia. focused on discharge planning Memory and concentration: AOX3, grossly intact for the purposes of this session Judgment and insight: improving mildly IMPRESSIONS: schizophrenia PLAN: -Patient is admitted under involuntary status on an active deferral to [facility] for stabilization of psychiatric symptoms and safety. Patient has signed medication consent and is placed in patient's chart. -Medications : Received Invega Sustenna 234 mg IM loading dose on 06/03, second dose of 156 mg IM will be due on 06/06 and monthly maintenance dose of 117 mg IM will be due on 07/04 -Ativan and Haldol PRN for agitation/aggression -NRT -not needed as patient does not smoke -SW on board for discharge planning. Encourage patient to participate in groups to work on coping skills. Will await court date from demand for hearing which is scheduled for 06/10, however patient is willing to sign a waive and stip prior to this. patient will need second JASMINE dose scheudled for tomorrow
[2024-06-06] MEDS: PALIPERIDONE IM 156 MG/ML SYG IM ONE (10:00)
--- NOTE | 2024-06-06 10:29 | P.PN ---
Progress Note - Text Progress Note Date: 06/06/24 Interval History: Patient was seen today for psychiatric follow up. Patient was wandering the h allways, agreeable to speak to production underwriter today. He states that he is doing okay today, denies any depression or anxiety. Claims that he has not heard from his civil litigation attorney at. Continues to have superficial insight and judgment. Has only been going to some groups, hygiene and grooming improving. Claims that he slept fairly last night. Claims that he received the injection this morning tolerated it well. States that he slept fairly last night, has been eating well. Denies any auditory or visual hallucinations, denies any suicidal or homicidal ideations intent or plan. MENTAL STATUS EXAM: General Appearance: Patient appears to be tall, long hair, wearing glasses, stated age is alert, fairly vague. Patient appears to have improving hygiene and grooming. Behavior: Patient is seated without any agitated behavior, improving mildly Speech: Patient's speech is fluent and nonpressured, concrete, improving mildly Mood/Affect: Patient reports their mood is "good", affect is congruent and constricted. Improving mildly Suicidality/Homicidality: Patient denies having any homicidal ideation intent or plan. Denies any suicidal ideations intent or plan Perceptions: Patient denies any visual hallucinations and denies any auditory hallucinations Though content/process: Patient was fairly concrete, poverty of content. Not endorsing any delusions or paranoia. Memory and concentration: AOX3, grossly intact for the purposes of this session Judgment and insight: improving mildly IMPRESSIONS: schizophrenia PLAN: -Patient is admitted under involuntary status on an active deferral to [facility] for stabilization of psychiatric symptoms and safety. Patient has signed medication consent and is placed in patient's chart. -Medications : Received Invega Sustenna 234 mg IM loading dose on 06/03, second dose was given 156 mg IM on 06/06 and monthly maintenance dose of 117 mg IM will be due on 07/04 -Ativan and Haldol PRN for agitation/aggression -NRT -not needed as patient does not smoke -SW on board for discharge planning. Encourage patient to participate in groups to work on coping skills. Will await court date from demand for hearing which is scheduled for 06/10, however patient is willing to sign a waive and stip prior to this.
[2024-06-07 11:23] VITALS: RESP 16
--- NOTE | 2024-06-07 13:00 | P.PN ---
Subjective Progress Note Date: 06/07/24 Patient was seen today for psychiatric follow up. Patient was wandering the hallways, agreeable to speak to medical writer today. He states that he is doing okay today, denies any depression or anxiety. Has only been going to some groups, hygiene and grooming adequate. Claims that he slept fairly last night. Claims that he received the injection and tolerates it well. States that he, has been eating well. Denies any auditory or visual hallucinations, denies any suicidal or homicidal ideations intent or plan. MENTAL STATUS EXAM: General Appearance: Patient appears to be tall, long hair, wearing glasses, stated age is alert, fairly vague. Patient appears to have improving hygiene and grooming. Behavior: Patient is seated without any agitated behavior, improving mildly Speech: Patient's speech is fluent and nonpressured, concrete, improving mildly Mood/Affect: Patient reports their mood is "good", affect is congruent and constricted. He definitely has a flat affect, probably from the medicine but no EPS stiffness. Suicidality/Homicidality: Patient denies having any homicidal ideation intent or plan. Denies any suicidal ideations intent or plan Perceptions: Patient denies any visual hallucinations and denies any auditory hallucinations Though content/process: Patient was fairly concrete, poverty of content. Not endorsing any delusions or paranoia. Memory and concentration: AOX3, grossly intact for the purposes of this session Judgment and insight: improving mildly IMPRESSIONS: schizophrenia PLAN: No change -Patient is admitted under involuntary status on an active deferral to [facility] for stabilization of psychiatric symptoms and safety. Patient has signed medication consent and is placed in patient's chart. -Medications : Received Invega Sustenna 234 mg IM loading dose on 06/03, second dose was given 156 mg IM on 06/06 and monthly maintenance dose of 117 mg IM will be due on 07/04 -Ativan and Haldol PRN for agitation/aggression -NRT -not needed as patient does not smoke -SW on board for discharge planning. Encourage patient to participate in groups to work on coping skills. Will await court date from demand for hearing which is scheduled for 06/10, however patient is willing to sign a waive and stip prior to this Objective - Vital Signs Vital signs: Vital Signs Temp 98.4 F 06/07/24 09:00 Pulse 106 H 06/07/24 09:00 Resp 16 06/07/24 09:00 BP 99/68 06/07/24 09:00 Pulse Ox 96 06/07/24 09:00 FiO2 - Labs CBC & Chem 7: 05/31/24 00:33 05/31/24 00:33
--- NOTE | 2024-06-08 12:32 | P.PN ---
Subjective Progress Note Date: 06/08/24 Principal diagnosis: Schizophrenia undifferentiated Patient was seen today wandering the hallways, agreeable to speak to chart writer today. He tends to be quiet and keeps to himself he states that he is doing okay today, denies any depression or anxiety. Has only been going to some groups, hygiene and grooming adequate. Claims that he slept fairly last night. Claims that he received the injection and tolerates it well. States that he, has been eating well. Denies any auditory or visual hallucinations, denies any suicidal or homicidal ideations intent or plan. He says he has his own house where is nice and quiet and he likes it there and his dad comes and helps him. MENTAL STATUS EXAM: Cooperative General Appearance: Patient appears to be tall, long hair, wearing glasses, stated age is alert, fairly vague. Patient appears to have improving hygiene and grooming. Behavior: Patient is seated without any agitated behavior, improving mildly Speech: Patient's speech is fluent and nonpressured, concrete, improving mildly Mood/Affect: Patient reports their mood is "good", he definitely has a flat affect, probably from the medicine but no EPS stiffness. Suicidality/Homicidality: Patient denies having any homicidal ideation intent or plan. Denies any suicidal ideations intent or plan Perceptions: Patient denies any visual hallucinations and denies any auditory wen llucinations Though content/process: Patient was fairly concrete, poverty of content. Not endorsing any delusions or paranoia. Memory and concentration: AOX3, grossly intact for the purposes of this session Judgment and insight: improving mildly IMPRESSIONS: schizophrenia PLAN: No change -Patient is admitted under involuntary status on an active deferral to [facility] for stabilization of psychiatric symptoms and safety. Patient has signed medication consent and is placed in patient's chart. -Medications : Received Invega Sustenna 234 mg IM loading dose on 06/03, second dose was given 156 mg IM on 06/06 and monthly maintenance dose of 117 mg IM will be due on 07/04 -Ativan and Haldol PRN for agitation/aggression -NRT -not needed as patient does not smoke -SW on board for discharge planning. Encourage patient to participate in groups to work on coping skills. Will await court date from demand for hearing which is scheduled for 06/10, however patient is willing to sign a waive and stip prior to this Objective - Vital Signs Vital signs: Vital Signs Temp 97.4 F L 06/08/24 09:00 Pulse 129 H 06/08/24 09:00 Resp 16 06/08/24 09:00 BP 120/63 06/08/24 09:00 Pulse Ox 99 06/08/24 09:00 FiO2 Intake & Output 06/07/24 06/08/24 06/08/24 18:59 06:59 18:59 Weight 93.485 kg - Labs CBC & Chem 7: 05/31/24 00:33 05/31/24 00:33
--- NOTE | 2024-06-09 11:19 | P.PN ---
Progress Note - Text Progress Note Date: 06/09/24 Interval History: Patient was seen today for psychiatric follow up. Patient claims that he is d oing fair today. Was seen mainly wandering the hallways not going to many groups. Improvement in hygiene and grooming. Denies any issues with depression or anxiety today. Not reporting any delusions or paranoia. Claims that he is sleeping well at nighttime. He was asking about potential discharge, we reviewed once again the need for completing the hearing which is set for tomorrow with [facility]. Claims that he slept fairly last night. Claims that he received the injection this morning tolerated it well. he has been eating well. Denies any auditory or visual hallucinations, denies any suicidal or homicidal ideations intent or plan. MENTAL STATUS EXAM: General Appearance: Patient appears to be tall, long hair, wearing glasses, stated age is alert, fairly vague. Patient appears to have improving hygiene and grooming. Behavior: Patient is seated without any agitated behavior, improving mildly Speech: Patient's speech is fluent and nonpressured, concrete, improving mildly Mood/Affect: Patient reports their mood is "ok", affect is congruent and constricted. Improving mildly Suicidality/Homicidality: Patient denies having any homicidal ideation intent or plan. Denies any suicidal ideations intent or plan Perceptions: Patient denies any visual hallucinations and denies any auditory hallucinations Though content/process: Patient was fairly concrete, poverty of content. Not endorsing any delusions or paranoia. Memory and concentration: AOX3, grossly intact for the purposes of this session Judgment and insight: improving mildly IMPRESSIONS: schizophrenia PLAN: -Patient is admitted under involuntary status on an active deferral to [facility] for stabilization of psychiatric symptoms and safety. Patient has signed medication consent and is placed in patient's chart. -Medications : Received Invega Sustenna 234 mg IM loading dose on 06/03, second dose was given 156 mg IM on 06/06 and monthly maintenance dose of 117 mg IM will be due on 07/04 -Ativan and Haldol PRN for agitation/aggression -NRT -not needed as patient does not smoke -SW on board for discharge planning. Encourage patient to participate in groups to work on coping skills. Will await court date from demand for hearing which is scheduled for 06/10, likely discharge tomorrow once the hearing is completed.
[2024-06-09 21:40] VITALS: BP 106/75; PULSE 109; TEMP 97.8
--- NOTE | 2024-06-10 10:17 | P.DS ---
Providers Date of admission: 05/29/24 21:55 Expected date of discharge: 06/10/24 Attending physician: Timothy Sy MD Consults: 05/29/24 22:03 Consult Physician Routine Consulting Provider: Bharti Robles Consult Reason/Comments: History and Physical, New Admission Do you want consulting provider notified?: Yes Primary care physician: Keo De La Rosa, DO - Discharge Diagnosis(es) (1) Schizophrenia Current Visit: Yes Status: Acute Priority: High Hospital Course: Admission HPI: Admission note was completed by global technical writer "[Patient is a 33-year-old male, currently lives alone in a trailer, lives in [facility], he is single has no kids unemployed. Patient presented to the hospital as a transfer from [facility]. As per EPS note "Patient presented to [facility] related to altered mental status and noncompliance with medications. Patient petitioned by parents stating that he is stealing from his social security and believes he is cured of schizophrenia. Patient has been noncompliant with his medications x3 days. Verbalizes auditory hallucinations daily but denies any commands." Patient was seen today for psychiatric evaluation. Patient was wandering the hallways. Patient claims that his parents were "a little scared" of him as he stopped taking his medications. He claims that they believe that he needs to come back to the hospital. He signed the deferral from his previous admission to the mental health unit in March. He is denying any current psychiatric issues at this time or no stressors at home. Claims that he thought that he was "fine". Claims that he was taking his Invega but then decided to stop for "a couple of days". He has fairly poor insight poor judgment. He was not responding to internal stimuli at this time. Patient denies any suicidal or homicidal ideations intent or plan. At this time patient denies any auditory or visual hallucinations. Patient denies any flight of ideas racing thoughts and increased in goal directed behavior. Patient admits to using no recreational drugs or cigarettes he claims that his sleep and appetite are fair at this time Hospital course: Upon admission to the unit patient was admitted involuntarily on a deferral and a demand for hearing was filed with the [facility] court. Hearing was completed for mental health combined order on 06/10 and resulted in an order. Patient was initially bizarre, psychotic however was cooperative and kept to himself on the unit. He was started on Invega p.o. 3 mg twice daily, patient was compliant with this and was agreeable to be transition onto Invega Sustenna to help ensure compliance. Patient was given loading dose of 234 mg IM on 06/03, second dose of 156 mg IM was given on 06/06, next monthly maintenance dose of 117 mg IM will be due on 07/04 at [facility]. Patient was compliant with the medications and denied any side effects throughout hospital course. Patient spoke of his stressors however did not participate much in group/activity therapy and mainly kept to themselves during hospitalization. Patient was also seen by medical team for history and physical exam. Throughout the course of the hospitalization patient gradually improved with regards to mood, anxiety, psychosis, sleep and returned back to their baseline level of functioning. On the day of discharge patient denied any suicidal or homicidal ideations intent or plan denied any auditory or visual hallucinations. Patient endorsed wanting to live for their health and family. The patient denied any access to guns or weapons. Patient denied any paranoia and did not endorse any delusions. Patient does not have a significant history of substance abuse and was counseled on abstaining from all substances including alcohol and marijuana. . Patient was also counseled on the medications and need for regular compliance and was encouraged to follow-up with their outpatient appointment for mental health and also for primary care. Prior to discharge a family meeting will be arranged by social services specialist to answer any questions and ensure safety upon discharge incuding making sure that guns/weapons are either removed from the home or locked away. Mental status exam: General Appearance: Patient appears to be tall, wearing glasses, long hair, stated age is alert, pleasant, and cooperative. Patient is in no acute distress and has improved hygiene and grooming Behavior: Patient is calmly seated without any agitated behavior. Speech: Patient's speech is fluent and nonpressured. Mood/Affect: Patient reports their mood is "good", affect is congruent Suicidality/Homicidality: Patient denies having any suicidal or homicidal idea tion intent or plan. Perceptions: Patient denies any auditory or visual hallucinations. Though content/process: There is no evidence of any delusional thought content and thought process is linear and goal-directed. More future oriented Memory and concentration: AOX3, grossly intact for the purposes of this session. Can spell "WORLD" backwards correctly. Judgment and insight: Chronically poor, however has improved with guarded prognosis Impression: Schizophrenia Plan: -Continue with discharge today as patient has improved and stabilized psychiatrically and is not currently an imminent threat to themself and/or others. -Continue medications: P.o. Invega was discontinued. Patient was transition onto Invega Sustenna given loading dose of 234 mg IM on 06/03-second dose of 156 mg IM was given on 06/06, monthly maintenance dose of 117 mg IM will be due on 07/04 at [facility]. -Patient was counseled on the need for medication compliance and appropriate follow-up at mental health and also primary care for medical issues. Patient verbalized understanding and agreed. -Social work to help coordinate patients discharge today. also to ensure safe home environment that guns/weapons are either removed from the home or locked away. Social work also to arrange for patients follow up appointments with [facility] for psychiatric care along with follow up with primary care provider. -Patient counseled on abstaining from recreational drugs and marijuana and alcohol. Was informed/educated on the adverse effects on their physical and mental health. Patient verbally agreed and understood. -Patient was instructed to return to the hospital or seek immediate medical care if their psychiatric or medical symptoms do worsen or reoccur. Laboratory Results WBC 7.32 10*3/uL (4.50-10.00) 05/31/24 00:33 RBC 4.79 10*6/uL (4.40-5.60) 05/31/24 00:33 Hgb 13.7 g/dL (13.0-17.0) 05/31/24 00:33 Hct 39.3 % (39.6-50.0) L 05/31/24 00:33 MCV 82.0 fL (80.0-97.0) 05/31/24 00:33 MCH 28.6 pg (27.0-32.0) 05/31/24 00:33 MCHC 34.9 g/dL (32.0-37.0) 05/31/24 00:33 Plt Count 314 10*3/uL (140-440) 05/31/24 00:33 MPV 9.3 fL (9.5-12.2) L 05/31/24 00:33 Immature Gran % (Auto) 0.1 % 05/31/24 00:33 Neutrophils % 60.6 % 05/31/24 00:33 Lymphocytes % 26.8 % 05/31/24 00:33 Monocytes % 7.8 % 05/31/24 00:33 Eosinophils % 4.0 % 05/31/24 00:33 Basophils % 0.7 % 05/31/24 00:33 Immature Gran # 0.01 10*3/uL (0.00-0.04) 05/31/24 00:33 Neutrophils # 4.44 10*3/uL (1.80-7.70) 05/31/24 00:33 Lymphocytes # 1.96 10*3/uL (0.90-5.00) 05/31/24 00:33 Monocytes # 0.57 10*3/uL (0.20-1.00) 05/31/24 00:33 Eosinophils # 0.29 10*3/uL (0.04-0.35) 05/31/24 00:33 Basophils # 0.05 10*3/uL (0.00-0.10) 05/31/24 00:33 Sodium 135 mmol/L (137-145) L 05/31/24 00:33 Potassium 4.2 mmol/L (3.5-5.1) 05/31/24 00:33 Chloride 101 mmol/L (98-107) 05/31/24 00:33 Carbon Dioxide 30 mmol/L (22-30) 05/31/24 00:33 Anion Gap 4 mmol/L 05/31/24 00:33 BUN 13 mg/dL (9-20) 05/31/24 00:33 Creatinine 0.79 mg/dL (0.66-1.25) 05/31/24 00:33 Est GFR (CKD-EPI)AfAm >90 (>60 ml/min/1.73 sqM) 05/31/24 00:33 Est GFR (CKD-EPI)NonAf >90 (>60 ml/min/1.73 sqM) 05/31/24 00:33 Glucose 81 mg/dL (74-99) 05/31/24 00:[address] Glu mg/dL 100 mg/dL 05/30/24 07:33 Hemoglobin A1c 5.1 % (<=6.0) 05/30/24 07:33 Calcium 9.3 mg/dL (8.4-10.2) 05/31/24 00:33 Total Bilirubin 0.3 mg/dL (0.2-1.3) 05/31/24 00:33 Conjugated Bilirubin 0.0 mg/dL (0.0-0.3) 05/30/24 07:33 Unconjugated Bilirubin 0.4 mg/dL (0.0-1.1) 05/30/24 07:33 Delta Bilirubin 0.2 mg/dL (0.0-0.2) 05/30/24 07:33 AST 21 U/L (17-59) 05/31/24 00:33 ALT 14 U/L (4-49) 05/31/24 00:33 Alkaline Phosphatase 57 U/L (38-126) 05/31/24 00:33 Total Protein 6.4 g/dL (6.3-8.2) 05/31/24 00:33 Albumin 3.9 g/dL (3.5-5.0) 05/31/24 00:33 Triglycerides 86.30 mg/dL (0.00-149.00) 05/30/24 07:33 Cholesterol 125.00 mg/dL (0.00-200.00) 05/30/24 07:33 LDL Cholesterol, Calc 70.3 mg/dL (0.0-131.0) 05/30/24 07:33 VLDL Cholesterol, Calc 17.26 mg/dL (5.00-40.00) 05/30/24 07:33 HDL Cholesterol 37.40 mg/dL (40.00-60.00) L 05/30/24 07:33 Cholesterol/HDL Ratio 3.34 Ratio 05/30/24 07:33 TSH 2.110 mIU/L (0.465-4.680) 05/30/24 07:33 Vital Signs Temp 97.8 F 06/09/24 21:39 Pulse 109 H 06/09/24 21:39 Resp 16 06/09/24 21:39 BP 106/75 06/09/24 21:39 Pulse Ox 95 06/09/24 21:39 FiO2 Allergies Allergy/AdvReac Type Severity Reaction Status Date / Time iodine Allergy Unknown Unknown Verified 04/13/24 16:35 Fish Containing Products AdvReac Unknown Verified 05/30/24 18:32 Patient presented to the hospital as a transfer from [facility]. As per EPS note "Patient presented to [facility] related to altered mental status and noncompliance with medications. Patient petitioned by parents stating that he is stealing from his social security and believes he is cured of schizophrenia. Patient has been noncompliant with his medications x3 days. Verbalizes auditory hallucinations daily but denies any commands." Patient was seen today for psychiatric evaluation. Patient was wandering the hallways. Patient claims that his parents were "a little scared" of him as he stopped taking his medications. He claims that they believe that he needs to come back to the hospital. He signed the deferral from his previous admission to the mental health unit in March. He is denying any current psychiatric issues at this time or no stressors at home. Claims that he thought that he was "fine". Claims that he was taking his Invega but then decided to stop for "a couple of days". He has fairly poor insight poor judgment. He was not responding to internal stimuli at this time. Patient denies any suicidal or homicidal ideations intent or plan. At this time patient denies any auditory or visual hallucinations. Patient denies any flight of ideas racing thoughts and increased in goal directed behavior. Patient admits to using no recreational drugs or cigarettes he claims that his sleep and appetite are fair at this time.]" Hospital course: Upon admission to the unit patient was [directable and agreeable to commence treatment and signed adult voluntary form.] [admitted involuntarily on a petition and certificate and a second certificate was completed and faxed to the courts.] [Patient ended up signing a deferral with the traffic law attorney and agreeing to treatment.] [Patient ended up having a court hearing for mental health treatment and receiving a mental health treatment order on][]. Patient was initially [] however with time and treatment patient got along well with other patients on the unit and followed unit protocol. Patient was compliant with the medications and denied any side effects throughout hospital course. Patient was started on []. Patient spoke of [his] stressors [and engaged in therapy both group/activity therapy.] [however did not participate much in group/activity therapy and mainly kept to themselves during hospitalization.] Patient was also seen by medical team for history and physical exam. [] Throughout the course of the hospitalization patient gradually improved with regards to [mood, anxiety,] [psychosis,] sleep and [returned back to their baseline level of functioning][became more future oriented with improved insight and judgment]. On the day of discharge patient denied any suicidal or homicidal ideations intent or plan denied any auditory or visual hallucinations. Patient endorsed wanting to live for [their health and family.] The patient denied any access to guns or weapons. Patient denied any paranoia and did not endorse any delusions. Patient does [not] have a significant history of substance abuse [and] was counseled on abstaining from all substances including alcohol and marijuana. [Patient was offered however declined inpatient substance-abuse rehab.] [Patient elected to do outpatient substance use treatment program through their outpatient provider.] [Patient ended up agreeing to inpatient [facility] rehab]. Patient was also counseled on the medications and need for regular compliance and was encouraged to follow-up with their outpatient appointment for mental health and also for primary care. [Prior to discharge a family meeting will be arranged by social services specialist to answer any questions and ensure safety upon discharge incuding making sure that guns/weapons are either removed from the h ome or locked away.] [] Mental status exam: General Appearance: Patient appears to be [] stated age is alert, pleasant, and cooperative. Patient is in no acute distress and has improved hygiene and g rooming Behavior: Patient is calmly seated without any agitated behavior. Speech: Patient's speech is fluent and nonpressured. Mood/Affect: Patient reports their mood is "[better][good]", affect is congruent and euthymic. Suicidality/Homicidality: Patient denies having any suicidal or homicidal ideation intent or plan. Perceptions: Patient denies any auditory or visual hallucinations. Though content/process: There is no evidence of any delusional thought content and thought process is linear and goal-directed. [more future oriented] Memory and concentration: AOX3, grossly intact for the purposes of this session. Can spell "WORLD" backwards correctly. Judgment and insight: [chronically poor, however has] improved with guarded prognosis Impression: [] [Nicotine dependence] Plan: -Continue with discharge today as patient has improved and stabilized psychiatrically and is not currently an imminent threat to themself and/or others. [Patient will remain at chronically elevated risk for harm to self and/or others due to their impulsivity and substance abuse.] -Continue medications: [] -Patient was counseled on the need for medication compliance and appropriate follow-up at mental health and also primary care for medical issues. Patient verbalized understanding and agreed. -Social work to [help coordinate patients discharge today][arrange for and conduct family meeting to ensure safety upon discharge and answer any questions/concerns]. also to ensure safe home environment that guns/weapons are either removed from the home or locked away. Social work also to arrange for p atients follow up appointments [with [facility]] for psychiatric care along with follow up with primary care provider. -Patient counseled on abstaining from recreational drugs and marijuana and alcohol. Was informed/educated on the adverse effects on their physical and mental health. Patient verbally agreed and understood. [Patient was offered substance abuse treatment however declined at this time.] -Patient was instructed to return to the hospital or seek immediate medical care if their psychiatric or medical symptoms do worsen or reoccur. [INSERT DATA FORMATS] Patient Condition at Discharge: Stable Plan - Discharge Summary Discharge Rx Participant: No New Discharge Prescriptions: New Paliperidone Palmitate [Invega Sustenna] 117 mg IM QMONTHLY #1 each Ibuprofen [Motrin] 600 mg PO Q6HR PRN tab PRN Reason: Moderate Pain (Scale 4 To 6) Discontinued Paliperidone [Invega] 3 mg PO BID 30 Days #60 tab Discharge Medication List Ibuprofen [Motrin] 600 mg PO Q6HR PRN tab 06/10/24 [Rx] Paliperidone Palmitate [Invega Sustenna] 117 mg IM QMONTHLY #1 each 06/10/24 [Rx] Follow up Appointment(s)/Referral(s): [facility] [Other] - 1 Week Patient Instructions/Handouts: Psychotic Disorder (DC) Activity/Diet/Wound Care/Special Instructions: [facility] Discharge Info Avoid the use of street drugs and alcohol. Take all medications as prescribed. When you are in need of refills on your medications, please contact your outpatient medical provider and/or outpatient psychiatrist. Please go to your scheduled outpatient appointments for aftercare treatment. If symptoms return or become worse, call the crisis line at or and/or visit the nearest emergency room for assistance. National Suicide and Crisis Lifeline - call or text 988 Discharge Disposition: HOME SELF-CARE
== END 2024-06-10 11:42 | disposition home or self-care (01) | DRG 885 ==
LOC: 3MHU 21:55
PROVIDERS: ADMIT Psychiatry & Neurology Psychiatry; ATTEND Psychiatry & Neurology Psychiatry
DX: F20.3 Undifferentiated schizophrenia (principal); Z91.148 Patient's other noncompliance with medication regimen for other reason; F17.200 Nicotine dependence, unspecified, uncomplicated; F32.A Depression, unspecified; R41.82 Altered mental status, unspecified; F41.9 Anxiety disorder, unspecified; Z56.0 Unemployment, unspecified; Z91.128 Patient's intentional underdosing of medication regimen for other reason; Z91.041 Radiographic dye allergy status
CPT/HCPCS: 80053; 80061; 80076; 83036; 84443; 85025